=== PATIENT | male | born 1930 | race Caucasian/White ===

== ENCOUNTER → 2016-12-26 | Outpatient (CLI) | payer MEDICARE, MEDICAID ==
[~2016-12-26] MED LIST: ASPIR LOW81 MG PO; CARBIDOPA/LEVODOPA PO; FINASTERIDE5 M1 PO; FOLIC ACID1 MG PO; HCTZ 25MG25 MG PO; IPRATROPIUM BROM3 M1 IH; JANUVIA 100MG100 MG; KLONOPIN 0.5MG0.5 MG PO; LEVOTHYROXIN0.112 MG PO; LISINOPRIL2.5 MG PO; MIRALAX17 GM PO; PRAVASTATIN SOD10 MG PO; [UNRECOGNIZED DRUG - OTHER] PO
== END ==
LOC: LAB 06:26
DX: E11.9 Type 2 diabetes mellitus without complications (principal); N39.0 Urinary tract infection, site not specified; R41.0 Disorientation, unspecified

== ENCOUNTER 2017-02-18 14:55 | Emergency (ER) | payer MEDICARE, MEDICAID ==
[2017-02-18] MEDS ORDERED: ASPIR LOW81 MG PO (15:41)
[2017-02-18] MEDS ORDERED: IPRATROPIUM BROM3 M1 IH (15:41)
[2017-02-18] MEDS ORDERED: HCTZ 25MG25 MG PO (17:31)
[2017-02-18] MEDS ORDERED: FOLIC ACID1 MG PO (17:31)
[2017-02-18] MEDS ORDERED: JANUVIA 100MG100 MG (17:31)
[2017-02-18] MEDS ORDERED: LISINOPRIL2.5 MG PO (17:31)
[2017-02-18] MEDS ORDERED: [UNRECOGNIZED DRUG - OTHER] PO (17:31)
[2017-02-18] MEDS ORDERED: MIRALAX17 GM PO (17:32)
[2017-02-18] MEDS ORDERED: KLONOPIN 0.5MG0.5 MG PO (17:32)
[2017-02-18] MEDS ORDERED: PRAVASTATIN SOD10 MG PO (17:33)
[2017-02-18] MEDS ORDERED: LEVOTHYROXIN0.112 MG PO (17:33)
[2017-02-18] MEDS ORDERED: FINASTERIDE5 M1 PO (17:33)
[2017-02-18] MEDS ORDERED: CARBIDOPA/LEVODOPA PO (17:33)
[2017-02-18 18:43] VITALS: BP 92/57
== END 2017-02-18 18:39 | disposition short-term general hospital (02) ==
LOC: ED 14:55
DX: R06.02 Shortness of breath (principal); R74.8 Abnormal levels of other serum enzymes; D72.829 Elevated white blood cell count, unspecified
CPT/HCPCS: A4322; J1940; J1956